=== PATIENT | female | born 1955 | race Caucasian/White ===

== ENCOUNTER → 2025-02-24 09:34 | Outpatient (REF) | payer MEDICARE, OTHER, SELFPAY ==
[2025-02-24 10:18] LABS: % Basophils 0.4 % (0-2); % Eosinophils 4.1 % (0-6); % Immature Granulocytes 0.4 % (0-0.5); % Lymphocytes 18.2 % (20.5-51.1); % Monocytes 4.6 % (1.7-9.3); % Neutrophils 72.3 % (42.2-75.2); Absolute Eosinophils 0.3 10^3/uL (0-0.7); Absolute Lymphocytes 1.3 10^3/uL (1.2-3.4); Absolute Monocytes 0.3 10^3/uL (0.1-0.6); Absolute Neutrophils 5.3 10^3/uL (1.4-6.5); Hematocrit 34.1 % (37.0-47.0); Hemoglobin 11.3 g/dL (12.0-16.0); Mean Corp Hgb Conc. 33.1 g/dL (33.0-37.0); Mean Corpuscular Hgb 31.1 pg (27.0-31.0); Mean Corpuscular Volume 93.9 fL (81.0-99.0); Nucleated Red Blood Cells % 0 %; Platelet Count 173 10^3/uL (130-400); Red Blood Cell Count 3.63 10^6/uL (4.20-5.40); Red Cell Dist. Width 16.8 % (11.5-14.5); White Blood Cell Count 7.4 10^3/uL (4.8-10.8)
[2025-02-24 10:50] LABS: ALT (SGPT) 36 U/L (0-35); AST (SGOT) 35 U/L (14-36); Albumin 3.7 g/dl (3.5-5.0); Alkaline Phosphatase 98 U/L (38-126); Blood Urea Nitrogen 37 mg/dl (7-17); Calcium 9.5 mg/dl (8.4-10.2); Carbon Dioxide 28 mmol/L (22-30); Chloride 99 mmol/L (98-107); Glucose 264 mg/dl (70-99); Potassium 4.4 mmol/L (3.5-5.1); Sodium 136 mmol/L (135-145); eGFR 54.39
== END ==
LOC: RCS 09:34
PROVIDERS: ATTENDING PHYSICIAN Student in an Organized Health Care Education/Training Program; FAMILY PHYSICIAN Internal Medicine
DX: R06.02 Shortness of breath (principal)
CPT/HCPCS: 36415; 80053; 85025; 93306

== ENCOUNTER → 2025-03-11 08:35 | Outpatient (REF) | payer MEDICARE, OTHER, SELFPAY | LOC: RAD 08:35 | PROVIDERS: ATTENDING PHYSICIAN Thoracic Surgery (Cardiothoracic Vascular Surgery); FAMILY PHYSICIAN Internal Medicine | DX: I34.0 Nonrheumatic mitral (valve) insufficiency (principal); I34.2 Nonrheumatic mitral (valve) stenosis; I35.1 Nonrheumatic aortic (valve) insufficiency; Z01.810 Encounter for preprocedural cardiovascular examination | CPT/HCPCS: 71275; 74174; Q9967 ==

== ENCOUNTER 2025-04-01 06:13 | Day surgery (SDC) | payer MEDICARE, OTHER, SELFPAY ==
[2025-04-01] VITALS (30 sets, daily range): BP systolic 107–145; BP diastolic 54–122; BMI 27.8
[2025-04-01 07:07] LABS: Glucose - Point of Care 273 mg/dl (70-99)
[2025-04-01 07:28] LABS: Blood Urea Nitrogen 42 mg/dl (7-17); Calcium 9.4 mg/dl (8.4-10.2); Carbon Dioxide 29 mmol/L (22-30); Chloride 104 mmol/L (98-107); Estimated Creatinine Clearance 55 ml/min; Glucose 284 mg/dl (70-99); Potassium 4.6 mmol/L (3.5-5.1); Sodium 138 mmol/L (135-145); eGFR > 60.00
[2025-04-01 07:43] LABS: Hematocrit 35.6 % (37.0-47.0); Hemoglobin 11.9 g/dL (12.0-16.0); Mean Corp Hgb Conc. 33.4 g/dL (33.0-37.0); Mean Corpuscular Hgb 31.6 pg (27.0-31.0); Mean Corpuscular Volume 94.7 fL (81.0-99.0); Mean Platelet Volume 9.4 fL (7.4-10.4); Platelet Count 154 10^3/uL (130-400); Red Blood Cell Count 3.76 10^6/uL (4.20-5.40); Red Cell Dist. Width 16.2 % (11.5-14.5); White Blood Cell Count 7.2 10^3/uL (4.8-10.8)
[2025-04-01 09:43] LABS: Glucose - Point of Care 275 mg/dl (70-99)
[2025-04-01] MEDS: FARXIGA 10 MG PO (11:24)
[2025-04-01] MEDS: NOVOLOG vial 10 UNITS SC (11:38)
[2025-04-01 11:40] LABS: Glucose - Point of Care 375 mg/dl (70-99)
[2025-04-01 14:36] LABS: Glucose - Point of Care 173 mg/dl (70-99)
[2025-04-01] MEDS: TYLENOL 650 MG PO (15:59)
--- NOTE | 2025-04-01 16:07 | ITS.CL.PN ---
Application Architect Manager - Procedure Note
Procedure
Procedure Note:
CARDIAC CATHETERIZATION REPORT
Date of Procedure: 04/01/2025
Referring: Stu Mcwilliams MD
Indication: mixed mitral and aortic valve disease, pre-operative assessment
PROCEDURE(S)
1. right heart catheterization
2. left heart catheterization
3. coronary angiography
ACCESS
1. 6F right radial artery (closure: radial band)
2. 5F right antecubital vein (closure: manual hemostasis)
CATHETERS
1. 5F [place]
2. 6F JR4
3. 6F JL3.5
MODERATE SEDATION: 30 minutes of moderate sedation was utilized. An independent medical office assistant instructor was present to assist with and help manage the patient's level of consciousness and physiologic status.
HEMODYNAMIC DATA
LV 128/13 (EDP 27) mmHg
AO 114/61 (mean 85) mmHg
RA 10 mmHg
RV 86/5 (EDP 16) mmHg
PA 87/33 (mean 57) mmHg
PCWP 26 mmHg
SaO2 91.9%
SvO2 61.8%
Hb 11.0 g/dL
CO/CI 5.55/2.78 L/min/m2
SVR 1081 dsc*-5
PVR 5.6 [place] units
CORONARY ANGIOGRAPHY
Dominance: Right
LM: large, normal
LAD: large vessel giving rise to several small diagonal branches. There are mild luminal irregularities only.
LCx: large vessel giving rise to a large branching OM1, small OM2, large OM3, and several small LPL branches. There are mild luminal irregularities only.
RCA: large-caliber vessel giving rise to a moderate caliber RPDA and small RPL branch. There are mild luminal irregularities only.
RADIATION: dose 398.42 mGy; DAP 24.1658 Gy*cm2; fluoroscopy time 6.6 min
CONCLUSIONS
1. Minimal coronary artery disease as described in a right dominant system.
2. 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
3. Mild gradient across the aortic valve as assessed by hemodynamic pullback.
4. Of note, profound calcification of the LV myocardium is noted as previously demonstrated on CT scan.
RECOMMENDATIONS
1. Guideline directed medical therapy for HFpEF. Will initiate SGLT2 inhibitor today. Will plan to also start spironolactone and intensify diuretics as an outpatient.
2. Patient has very profound pulmonary hypertension somewhat out of proportion to her degree of valvular disease and cardiomyopathy. 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
dysfunction related to her profound myocardial calcification. This type of myocardial calcification is not well described and in her case has been stable since CT scan in 2020. Once medically optimized we will consider repeat right heart cath and
consideration of referral to pulmonary hypertension specialist if there appears to be a significant component of residual precapillary pulmonary hypertension.
Copy to: Dr. Alden Steven MD, PhD (fbi field agent); Dr. Ilsa Lopez DO (PCP)
Signed: Alden Steven MD, PhD
== END 2025-04-01 16:20 | disposition home or self-care (01) ==
LOC: CATH 06:13
PROVIDERS: ATTENDING PHYSICIAN Student in an Organized Health Care Education/Training Program; FAMILY PHYSICIAN Internal Medicine; OTHER PHYSICIAN Internal Medicine Cardiovascular Disease
DX: I08.0 Rheumatic disorders of both mitral and aortic valves (principal); I25.10 Atherosclerotic heart disease of native coronary artery without angina pectoris; I27.29 Other secondary pulmonary hypertension; Z79.01 Long term (current) use of anticoagulants; Z79.890 Hormone replacement therapy; I50.32 Chronic diastolic (congestive) heart failure; I48.0 Paroxysmal atrial fibrillation; E11.9 Type 2 diabetes mellitus without complications; I25.2 Old myocardial infarction; I13.0 Hypertensive heart and chronic kidney disease with heart failure and stage 1 through stage 4 chronic kidney disease, or unspecified chronic kidney disease; E11.22 Type 2 diabetes mellitus with diabetic chronic kidney disease; N18.4 Chronic kidney disease, stage 4 (severe); E03.9 Hypothyroidism, unspecified; I44.7 Left bundle-branch block, unspecified
CPT/HCPCS: 99152; 99153; 80048; 82962; 85027; 93005; 93460; C1769; C1894; Q9967